=== PATIENT | male | born 1950 | race Hispanic/Latino ===

== ENCOUNTER 2020-11-06 18:23 | Inpatient (IN) | payer MEDICARE ==
[~2020-11-06] VITALS: Ht 172.7 cm; Wt 96.2 kg
[~2020-11-06 18:23] MED LIST: GLIM2TAB30 PO; INSU100V12 SQ; LISI20TA24 PO; METF-444 PO; VALA100031 PO
[2020-11-06 18:49] LABS: BASOPHILS % (AUTO) 0.3 % (0.0-5.0); EOSINOPHILS % (AUTO) 1.4 % (0.0-8.0); HEMATOCRIT 26.3 % (42-54); LYMPHOCYTES % (AUTO) 17.3 % (21.0-51.0); MEAN CORPUSCULAR HEMOGLOBIN 27.2 pg (27.0-33.0); MEAN CORPUSCULAR HGB CONC 32.3 g/dL (32.0-36.0); MONOCYTES % (AUTO) 7.8 % (3.0-13.0); PLATELET COUNT (AUTO) 226 K/uL (130-400); RED BLOOD CELL COUNT(AUTO) 3.13 MIL/uL (4.50-6.20); RED CELL DISTRIBUTION WIDTH 14.7 % (11.0-15.5); WHITE BLOOD COUNT (AUTO) 8.6 K/uL (4.8-10.8)
[2020-11-06 18:54] LABS: APPEARANCE,URINE SL CLOUDY (CLEAR); BILIRUBIN,URINE NEGATIVE (NEGATIVE); COLOR,URINE YELLOW (YELLOW); GLUCOSE, URINE (UA) 100 mg/dL (NEGATIVE); KETONES,URINE NEGATIVE (NEGATIVE); LEUKOCYTE ESTERASE ,URINE NEGATIVE (NEGATIVE); NITRATE,URINE NEGATIVE (NEGATIVE); OCCULT BLOOD,URINE SMALL (NEGATIVE); PROTEIN,URINE >=300 mg/dL (NEGATIVE); UROBILINOGEN,URINE 0.2 mg/dL (0.2-1.0)
[2020-11-06 19:05] LABS: INR 1.06 (0.85-1.15); PROTHROMBIN TIME 11.5 SEC (9.6-11.6)
[2020-11-06 19:07] LABS: PARTIAL THROMBOPLASTIN TIME 28.5 SEC (26.3-35.5)
[2020-11-06 19:19] LABS: B-TYPE NATRIURETIC PEPTIDE 622 pg/mL (0-100)
[2020-11-06 19:21] LABS: BACTERIA,URINE Few /HPF (None Seen); SQUAMOUS EPITHELIAL CELL,UR Few /HPF (0-2)
[2020-11-06] MEDS ORDERED: FUROSEMIDE 40MG VIAL ONE (19:28)
[2020-11-06 19:39] LABS: ALBUMIN 3.6 g/dL (3.5-5.0); BILIRUBIN,TOTAL 0.4 mg/dL (0.2-1.0); CREATININE 5.4 mg/dL (0.5-1.5); POTASSIUM 4.3 mmol/L (3.5-5.1); TOTAL PROTEIN, SERUM 8.5 g/dL (6.0-8.3)
[2020-11-06 19:49] LABS: ABG HCO3 17.6 mmol/L (21.0-28.0); ABG OXYGEN SATURATION 94.5 % (95.0-99.0); ABG PCO2 33 mmHg (35-48)
[2020-11-06 21:11] LABS: CREATINE KINASE, TOTAL 201 U/L (21-232); MYOGLOBIN 282 ng/mL (10-92); TROPONIN I < 0.04 ng/mL (0.00-0.06)
[2020-11-06] MEDS ORDERED: FUROSEMIDE 20MG VIAL IV SCH (21:15)
[2020-11-06 21:32] LABS: HEMOGLOBIN A1C 7.4 % (4.0-6.0)
[2020-11-06] MEDS ORDERED: LACTULOSE 20 GM/30 ML UDCUP PO PRN (23:15)
[2020-11-06] MEDS ORDERED: ONDANSETRON 4MG INJ IV PRN (23:15)
[2020-11-06] MEDS: CEFTRIAXONE 1G VIAL IVP SCH (23:15)
[2020-11-06] MEDS ORDERED: NITROGLYCERIN 0.4 MG SL TAB SL PRN (23:15)
[2020-11-06] MEDS ORDERED: GUAIFENESIN-DM 200/20 MG 10 ML PO PRN (23:15)
[2020-11-06] MEDS ORDERED: MAG/ALUM/SIMETH 30 ML UDCUP PO PRN (23:15)
[2020-11-06] MEDS ORDERED: DOXYCYCLINE 100MG+NS 250ML IV SCH (23:15)
[2020-11-06] MEDS ORDERED: DiphenhydrAMINE HCL 50 MG/ML VIAL IV PRN (23:15)
[2020-11-06] MEDS ORDERED: ACETAMINOPHEN 325 MG TAB PO PRN (23:15)
[2020-11-06] MEDS ORDERED: ALBUTEROL 0.083% 2.5 MG/3 ML INH IH PRN (23:15)
[2020-11-07] MEDS ORDERED: GLUCAGON 1MG KIT 1 MG ML IM PRN (00:30)
[2020-11-07] MEDS ORDERED: DEXTROSE 50%-WATER 50 ML DISP.SYRIN IV PRN (00:30)
[2020-11-07] MEDS ORDERED: POTASSIUM CHLORIDE 20MEQ/100ML 100 ML IV PRN ×2 (00:30)
[2020-11-07] MEDS: INSULIN GLARGINE 100 UNITS/ML 10 ML VIAL SQ SCH ×2 (00:30→21:38)
[2020-11-07] MEDS: DOXYCYCLINE 100MG+NS 250ML 250 ML IV SCH ×2 (02:48→16:01)
[2020-11-07] MEDS ORDERED: SIMV-43 PO (05:04)
[2020-11-07] MEDS ORDERED: TORS20TA4 PO (05:04)
[2020-11-07] MEDS ORDERED: AMLO-257 PO (05:12)
[2020-11-07 05:15] VITALS: BP 157/73
[2020-11-07 06:32] LABS: % IRON SATURATION 6.1 % (30-44)
[2020-11-07] MEDS: INSULIN HUMULIN R 100 UNIT/ML 3ML SQ SCH ×4 (06:36→21:37)
[2020-11-07] MEDS: FAMOTIDINE 20MG VIAL IV SCH (07:40)
[2020-11-07] MEDS: HEPARIN 5,000 UNIT VIAL SQ SCH ×2 (07:40→21:24)
[2020-11-07 07:56] VITALS: BP 134/74
[2020-11-07] MEDS: CEFTRIAXONE 1G VIAL IVP SCH ×2 (11:15→23:18)
[2020-11-07 12:00] VITALS: BP 154/72
[2020-11-07] MEDS ORDERED: EPOETIN ALFA-EPBX (NON-ESRD) 10,000 UNIT/ML VIAL SQ SCH (12:00)
[2020-11-07] MEDS ORDERED: COMPOUND IV MISC 1 EACH IVSOLN MISC PRN (12:15)
[2020-11-07] MEDS ORDERED: 0.9% NACL 250ML 250 ML IV ONE (12:29)
[2020-11-07] MEDS: IRON SUCROSE COMPLEX 100 MG in 0.9%NACL 50ML 50 ML IV SCH (12:31)
[2020-11-07 16:00] VITALS: BP 138/73
[2020-11-07] MEDS: ACETAMINOPHEN 325 MG TAB PO PRN (16:03)
[2020-11-07 20:00] VITALS: BP 171/63
[2020-11-07] MEDS: FUROSEMIDE 20MG VIAL IV SCH (21:25)
[2020-11-07] MEDS: AMLODIPINE 5 MG TAB PO SCH (21:26)
[2020-11-08] VITALS: BP 160/75
[2020-11-08] MEDS: DOXYCYCLINE 100MG+NS 250ML 250 ML IV SCH ×2 (02:51→15:21)
[2020-11-08 04:00] VITALS: BP 141/63
[2020-11-08 05:29] LABS: BASOPHILS % (AUTO) 0.3 % (0.0-5.0); EOSINOPHILS % (AUTO) 0.5 % (0.0-8.0); HEMATOCRIT 24.2 % (42-54); LYMPHOCYTES % (AUTO) 12.3 % (21.0-51.0); MEAN CORPUSCULAR HGB CONC 32.2 g/dL (32.0-36.0); MEAN CORPUSCULAR VOLUME 83.7 fL (79-99); MONOCYTES % (AUTO) 9.9 % (3.0-13.0); NEUTROPHILS % (AUTO) 76.5 % (40.0-77.0); PLATELET COUNT (AUTO) 212 K/uL (130-400); RED BLOOD CELL COUNT(AUTO) 2.89 MIL/uL (4.50-6.20); RED CELL DISTRIBUTION WIDTH 14.7 % (11.0-15.5); WHITE BLOOD COUNT (AUTO) 7.8 K/uL (4.8-10.8)
[2020-11-08 05:51] LABS: ALBUMIN 3.3 g/dL (3.5-5.0); BILIRUBIN,TOTAL 0.3 mg/dL (0.2-1.0); CREATININE 5.5 mg/dL (0.5-1.5); PHOSPHORUS 5.4 mg/dL (2.5-4.9); POTASSIUM 3.9 mmol/L (3.5-5.1); TOTAL PROTEIN, SERUM 7.9 g/dL (6.0-8.3)
[2020-11-08] MEDS: INSULIN HUMULIN R 100 UNIT/ML 3ML SQ SCH ×4 (07:30→21:08)
[2020-11-08 07:49] VITALS: BP 157/78
[2020-11-08] MEDS: IRON SUCROSE COMPLEX 100 MG in 0.9%NACL 50ML 50 ML IV SCH (10:00)
[2020-11-08] MEDS: FAMOTIDINE 20MG VIAL IV SCH (10:00)
[2020-11-08] MEDS: FUROSEMIDE 20MG VIAL IV SCH ×2 (10:00→20:53)
[2020-11-08] MEDS: AMLODIPINE 5 MG TAB PO SCH ×2 (10:00→20:56)
[2020-11-08] MEDS: SIMVASTATIN 20 MG TABLET PO SCH (10:00)
[2020-11-08] MEDS: HEPARIN 5,000 UNIT VIAL SQ SCH ×2 (10:11→21:08)
[2020-11-08 11:40] VITALS: BP 151/81
[2020-11-08] MEDS: CEFTRIAXONE 1G VIAL IVP SCH ×2 (12:14→23:31)
[2020-11-08 16:22] VITALS: BP 154/78
[2020-11-08 20:01] VITALS: BP 146/78
[2020-11-08] MEDS: ACETAMINOPHEN 325 MG TAB PO PRN (20:53)
[2020-11-08] MEDS: INSULIN GLARGINE 100 UNITS/ML 10 ML VIAL SQ SCH (21:09)
[2020-11-09] VITALS (12 sets, daily range): BP systolic 133–162; BP diastolic 58–86
[2020-11-09] MEDS: DOXYCYCLINE 100MG+NS 250ML 250 ML IV SCH ×2 (02:30→15:00)
[2020-11-09 04:59] LABS: BASOPHILS % (AUTO) 0.4 % (0.0-5.0); EOSINOPHILS % (AUTO) 0.9 % (0.0-8.0); HEMATOCRIT 23.7 % (42-54); LYMPHOCYTES % (AUTO) 10.5 % (21.0-51.0); MEAN CORPUSCULAR HEMOGLOBIN 27.9 pg (27.0-33.0); MEAN CORPUSCULAR HGB CONC 33.8 g/dL (32.0-36.0); MEAN CORPUSCULAR VOLUME 82.6 fL (79-99); MONOCYTES % (AUTO) 8.6 % (3.0-13.0); NEUTROPHILS % (AUTO) 79.1 % (40.0-77.0); PLATELET COUNT (AUTO) 202 K/uL (130-400); RED BLOOD CELL COUNT(AUTO) 2.87 MIL/uL (4.50-6.20); RED CELL DISTRIBUTION WIDTH 14.6 % (11.0-15.5); WHITE BLOOD COUNT (AUTO) 8.6 K/uL (4.8-10.8)
[2020-11-09 05:01] LABS: % IRON SATURATION 12.1 % (30-44)
[2020-11-09 05:08] LABS: B-TYPE NATRIURETIC PEPTIDE 1060 pg/mL (0-100)
[2020-11-09 05:09] LABS: ALBUMIN 3.1 g/dL (3.5-5.0); BILIRUBIN,TOTAL 0.4 mg/dL (0.2-1.0); CREATININE 5.4 mg/dL (0.5-1.5); PHOSPHORUS 5.3 mg/dL (2.5-4.9); POTASSIUM 4.5 mmol/L (3.5-5.1); TOTAL PROTEIN, SERUM 7.9 g/dL (6.0-8.3)
[2020-11-09] MEDS: INSULIN HUMULIN R 100 UNIT/ML 3ML SQ SCH ×4 (07:29→19:52)
[2020-11-09] MEDS: HEPARIN 5,000 UNIT VIAL SQ SCH ×3 (09:00→19:53)
[2020-11-09] MEDS: FUROSEMIDE 20MG VIAL IV SCH ×2 (09:12→19:53)
[2020-11-09] MEDS: AMLODIPINE 5 MG TAB PO SCH ×2 (09:13→20:35)
[2020-11-09] MEDS: FAMOTIDINE 20MG VIAL IV SCH (09:13)
[2020-11-09] MEDS: SIMVASTATIN 20 MG TABLET PO SCH (09:13)
[2020-11-09] MEDS: IRON SUCROSE COMPLEX 100 MG in 0.9%NACL 50ML 50 ML IV SCH (10:50)
[2020-11-09] MEDS: CEFTRIAXONE 1G VIAL IVP SCH ×2 (11:04→23:20)
[2020-11-09 11:58] LABS: CHOLESTEROL 125 mg/dL (<200); HDL CHOLESTEROL 49 mg/dL (29-71); LDL DIRECT 59 mg/dL (0-99); TRIGLYCERIDES 82 mg/dL (30-200)
[2020-11-09 12:00] LABS: HEMOGLOBIN A1C 6.6 % (4.0-6.0)
[2020-11-09] MEDS ORDERED: LIDOCAINE HCL 400MG/20ML VIAL ONE (15:28)
[2020-11-09] MEDS ORDERED: HEPARIN 1,000 UNIT VIAL ONE (15:28)
[2020-11-09] MEDS ORDERED: SODIUM BICARB 50MEQ 50ML VIAL 50 ML ONE (15:28)
[2020-11-09] MEDS ORDERED: HEPARIN 5,000 UNIT VIAL IJ PRN (20:15)
[2020-11-09] MEDS ORDERED: NITROGLYCERIN 0.4 MG SL TAB SL PRN (20:15)
[2020-11-09] MEDS ORDERED: LIDOCAINE HCL-MPF 1% 2ML VIAL IJ PRN (20:15)
[2020-11-09] MEDS ORDERED: 0.9%NACL 1000ML IV PRN (20:15)
[2020-11-09] MEDS ORDERED: 0.9%NACL 1000ML 1,000 ML IV PRN (20:15)
[2020-11-09] MEDS: INSULIN GLARGINE 100 UNITS/ML 10 ML VIAL SQ SCH (20:38)
[2020-11-10] MEDS: DOXYCYCLINE 100MG+NS 250ML 250 ML IV SCH ×2 (02:09→15:06)
[2020-11-10 03:57] VITALS: BP 146/77
[2020-11-10 04:43] LABS: BASOPHILS % (AUTO) 0.3 % (0.0-5.0); EOSINOPHILS % (AUTO) 0.7 % (0.0-8.0); HEMATOCRIT 24.7 % (42-54); MEAN CORPUSCULAR HEMOGLOBIN 27.1 pg (27.0-33.0); MEAN CORPUSCULAR HGB CONC 32.8 g/dL (32.0-36.0); MEAN CORPUSCULAR VOLUME 82.6 fL (79-99); MONOCYTES % (AUTO) 7.7 % (3.0-13.0); NEUTROPHILS % (AUTO) 80.9 % (40.0-77.0); PLATELET COUNT (AUTO) 202 K/uL (130-400); RED BLOOD CELL COUNT(AUTO) 2.99 MIL/uL (4.50-6.20); RED CELL DISTRIBUTION WIDTH 14.9 % (11.0-15.5); WHITE BLOOD COUNT (AUTO) 7.2 K/uL (4.8-10.8)
[2020-11-10 04:57] LABS: BILIRUBIN,TOTAL 0.4 mg/dL (0.2-1.0); CREATININE 4.5 mg/dL (0.5-1.5); PHOSPHORUS 4.7 mg/dL (2.5-4.9); POTASSIUM 3.9 mmol/L (3.5-5.1); TOTAL PROTEIN, SERUM 7.6 g/dL (6.0-8.3)
[2020-11-10 05:07] LABS: B-TYPE NATRIURETIC PEPTIDE 1730 pg/mL (0-100)
[2020-11-10] MEDS: INSULIN HUMULIN R 100 UNIT/ML 3ML SQ SCH ×4 (05:24→22:12)
[2020-11-10 08:01] VITALS: BP 146/74
[2020-11-10] MEDS: FAMOTIDINE 20MG VIAL IV SCH (08:12)
[2020-11-10] MEDS: IRON SUCROSE COMPLEX 100 MG in 0.9%NACL 50ML 50 ML IV SCH (08:12)
[2020-11-10] MEDS: SIMVASTATIN 20 MG TABLET PO SCH (08:13)
[2020-11-10] MEDS: AMLODIPINE 5 MG TAB PO SCH ×2 (08:13→21:41)
[2020-11-10] MEDS: FUROSEMIDE 20MG VIAL IV SCH ×2 (08:13→21:40)
[2020-11-10] MEDS: HEPARIN 5,000 UNIT VIAL SQ SCH ×2 (08:14→22:08)
[2020-11-10] MEDS ORDERED: NITROGLYCERIN 0.4 MG SL TAB SL PRN (10:00)
[2020-11-10] MEDS ORDERED: 0.9%NACL 1000ML IV PRN (10:00)
[2020-11-10] MEDS ORDERED: ACETAMINOPHEN 325 MG TAB PO PRN (10:00)
[2020-11-10] MEDS ORDERED: ALBUMIN FOR BP SUPPORT MISC PRN (10:00)
[2020-11-10] MEDS ORDERED: LIDOCAINE HCL-MPF 1% 2ML VIAL IJ PRN (10:00)
[2020-11-10] MEDS ORDERED: 0.9%NACL 1000ML 1,000 ML IV PRN (10:00)
[2020-11-10] MEDS ORDERED: HEPARIN 5,000 UNIT VIAL IJ PRN ×2 (10:00)
[2020-11-10 10:13] LABS: HEPATITIS Bs ANTIGEN SCREEN P Negative (Negative)
[2020-11-10] MEDS: CEFTRIAXONE 1G VIAL IVP SCH ×2 (11:57→23:18)
[2020-11-10 12:24] VITALS: BP 145/78
[2020-11-10 16:10] VITALS: BP 144/69
[2020-11-10 20:31] VITALS: BP 157/67
[2020-11-10] MEDS: INSULIN GLARGINE 100 UNITS/ML 10 ML VIAL SQ SCH (22:11)
[2020-11-11] VITALS (7 sets, daily range): BP systolic 123–163; BP diastolic 51–77
[2020-11-11] MEDS: DOXYCYCLINE 100MG+NS 250ML 250 ML IV SCH ×2 (02:07→14:55)
[2020-11-11 05:05] LABS: BASOPHILS % (AUTO) 0.3 % (0.0-5.0); EOSINOPHILS % (AUTO) 2.8 % (0.0-8.0); HEMATOCRIT 23.9 % (42-54); LYMPHOCYTES % (AUTO) 15.5 % (21.0-51.0); MEAN CORPUSCULAR HEMOGLOBIN 27.3 pg (27.0-33.0); MEAN CORPUSCULAR HGB CONC 33.5 g/dL (32.0-36.0); MEAN CORPUSCULAR VOLUME 81.6 fL (79-99); MONOCYTES % (AUTO) 10.9 % (3.0-13.0); NEUTROPHILS % (AUTO) 70.2 % (40.0-77.0); PLATELET COUNT (AUTO) 198 K/uL (130-400); RED BLOOD CELL COUNT(AUTO) 2.93 MIL/uL (4.50-6.20); RED CELL DISTRIBUTION WIDTH 14.5 % (11.0-15.5); WHITE BLOOD COUNT (AUTO) 6.1 K/uL (4.8-10.8)
[2020-11-11 05:11] LABS: CREATININE 4.1 mg/dL (0.5-1.5); POTASSIUM 3.2 mmol/L (3.5-5.1)
[2020-11-11] MEDS: INSULIN HUMULIN R 100 UNIT/ML 3ML SQ SCH ×4 (07:30→21:53)
[2020-11-11] MEDS: IRON SUCROSE COMPLEX 100 MG in 0.9%NACL 50ML 50 ML IV SCH (08:16)
[2020-11-11] MEDS: FAMOTIDINE 20MG VIAL IV SCH (08:16)
[2020-11-11] MEDS: FUROSEMIDE 20MG VIAL IV SCH ×2 (08:16→20:17)
[2020-11-11] MEDS: SIMVASTATIN 20 MG TABLET PO SCH (08:16)
[2020-11-11] MEDS: HEPARIN 5,000 UNIT VIAL SQ SCH ×2 (09:00→20:26)
[2020-11-11] MEDS ORDERED: CEFAZOLIN SODIUM 100 GM IV SCH (09:15)
[2020-11-11] MEDS ORDERED: EPOETIN ALFA-EPBX (ESRD) 10,000 UNIT/ML VIAL SQ SCH (13:45)
[2020-11-11] MEDS: CEFTRIAXONE 1G VIAL IVP SCH (14:54)
[2020-11-11] MEDS: AMLODIPINE 5 MG TAB PO SCH ×2 (14:54→20:20)
[2020-11-11] MEDS: ACETAMINOPHEN 325 MG TAB PO PRN (18:43)
[2020-11-11] MEDS: INSULIN GLARGINE 100 UNITS/ML 10 ML VIAL SQ SCH (21:53)
[2020-11-12] VITALS (18 sets, daily range): BP systolic 136–152; BP diastolic 57–69
[2020-11-12] MEDS: CEFTRIAXONE 1G VIAL IVP SCH ×3 (00:01→22:26)
[2020-11-12] MEDS: DOXYCYCLINE 100MG+NS 250ML 250 ML IV SCH ×2 (03:36→15:18)
[2020-11-12 05:22] LABS: BASOPHILS % (AUTO) 0.6 % (0.0-5.0); HEMATOCRIT 24.8 % (42-54); LYMPHOCYTES % (AUTO) 18.4 % (21.0-51.0); MEAN CORPUSCULAR HEMOGLOBIN 26.7 pg (27.0-33.0); MEAN CORPUSCULAR HGB CONC 32.3 g/dL (32.0-36.0); MEAN CORPUSCULAR VOLUME 82.7 fL (79-99); MONOCYTES % (AUTO) 13.2 % (3.0-13.0); NEUTROPHILS % (AUTO) 62.4 % (40.0-77.0); PLATELET COUNT (AUTO) 189 K/uL (130-400); RED CELL DISTRIBUTION WIDTH 14.5 % (11.0-15.5)
[2020-11-12 05:36] LABS: CREATININE 3.2 mg/dL (0.5-1.5); PHOSPHORUS 3.6 mg/dL (2.5-4.9); POTASSIUM 3.4 mmol/L (3.5-5.1)
[2020-11-12] MEDS ORDERED: CEFAZOLIN SODIUM 100 GM IV SCH (06:30)
[2020-11-12] MEDS: INSULIN HUMULIN R 100 UNIT/ML 3ML SQ SCH ×4 (06:37→22:24)
[2020-11-12] MEDS: HEPARIN 5,000 UNIT VIAL SQ SCH ×2 (08:23→22:23)
[2020-11-12] MEDS: AMLODIPINE 5 MG TAB PO SCH ×2 (08:31→22:04)
[2020-11-12] MEDS: FAMOTIDINE 20MG VIAL IV SCH (08:31)
[2020-11-12] MEDS: FUROSEMIDE 20MG VIAL IV SCH ×2 (08:31→22:04)
[2020-11-12] MEDS: IRON SUCROSE COMPLEX 100 MG in 0.9%NACL 50ML 50 ML IV SCH (08:31)
[2020-11-12] MEDS: SIMVASTATIN 20 MG TABLET PO SCH (08:32)
[2020-11-12] MEDS: ACETAMINOPHEN 325 MG TAB PO PRN (08:33)
[2020-11-12] MEDS: KCL 20 MEQ ERTAB PO PRN ×2 (08:49→12:51)
[2020-11-12] MEDS ORDERED: LIDOCAINE HCL 1% 20 ML VIAL ONE (09:10)
[2020-11-12] MEDS ORDERED: ROPIVACAINE 0.5% 5MG/ML 30ML IJ ONE (09:41)
[2020-11-12] MEDS ORDERED: LIDOCAINE 1%-EPI 1:100,000 20 ML VIAL IJ ONE (09:41)
[2020-11-12] MEDS ORDERED: LIDOCAINE 2%-EPI 1:200,000 20 ML VIAL IJ ONE (09:43)
[2020-11-12] MEDS ORDERED: MIDAZOLAM HCL 1 MG/ML 2ML VIAL ONE (09:44)
[2020-11-12] MEDS ORDERED: PROPOFOL 10 MG/ML 20ML VIAL IV ONE ×2 (09:44→10:38)
[2020-11-12] MEDS ORDERED: CEFAZOLIN SODIUM 1 GM VIAL IVP ONE (10:05)
[2020-11-12] MEDS ORDERED: CEFAZOLIN SODIUM 1 GM VIAL ONE (21:56)
[2020-11-12] MEDS: INSULIN GLARGINE 100 UNITS/ML 10 ML VIAL SQ SCH (22:24)
[2020-11-13] VITALS (7 sets, daily range): BP systolic 140–157; BP diastolic 56–70
[2020-11-13] MEDS: DOXYCYCLINE 100MG+NS 250ML 250 ML IV SCH ×2 (03:00→15:39)
[2020-11-13 04:40] LABS: BASOPHILS % (AUTO) 0.3 % (0.0-5.0); EOSINOPHILS % (AUTO) 3.4 % (0.0-8.0); HEMATOCRIT 24.7 % (42-54); LYMPHOCYTES % (AUTO) 14.7 % (21.0-51.0); MEAN CORPUSCULAR HEMOGLOBIN 27.1 pg (27.0-33.0); MEAN CORPUSCULAR VOLUME 84.6 fL (79-99); MONOCYTES % (AUTO) 12.1 % (3.0-13.0); PLATELET COUNT (AUTO) 178 K/uL (130-400); RED BLOOD CELL COUNT(AUTO) 2.92 MIL/uL (4.50-6.20); RED CELL DISTRIBUTION WIDTH 14.9 % (11.0-15.5); WHITE BLOOD COUNT (AUTO) 6.3 K/uL (4.8-10.8)
[2020-11-13 04:50] LABS: ALBUMIN 2.5 g/dL (3.5-5.0); BILIRUBIN,TOTAL 0.2 mg/dL (0.2-1.0); PHOSPHORUS 3.4 mg/dL (2.5-4.9); POTASSIUM 3.5 mmol/L (3.5-5.1); TOTAL PROTEIN, SERUM 6.4 g/dL (6.0-8.3)
[2020-11-13] MEDS: INSULIN HUMULIN R 100 UNIT/ML 3ML SQ SCH ×4 (05:34→21:02)
[2020-11-13] MEDS: POTASSIUM CHLORIDE 10% ELIXIR 20 MEQ/15 ML UDCUP PO PRN ×2 (05:36→12:32)
[2020-11-13] MEDS: HEPARIN 5,000 UNIT VIAL SQ SCH ×2 (09:00→21:15)
[2020-11-13] MEDS: SIMVASTATIN 20 MG TABLET PO SCH (12:32)
[2020-11-13] MEDS: FUROSEMIDE 20MG VIAL IV SCH ×2 (12:32→21:09)
[2020-11-13] MEDS: AMLODIPINE 5 MG TAB PO SCH ×2 (12:33→21:10)
[2020-11-13] MEDS: CEFTRIAXONE 1G VIAL IVP SCH (12:33)
[2020-11-13] MEDS: FAMOTIDINE 20MG VIAL IV SCH (12:33)
[2020-11-13] MEDS: IRON SUCROSE COMPLEX 100 MG in 0.9%NACL 50ML 50 ML IV SCH (12:46)
[2020-11-13] MEDS ORDERED: EPOETIN ALFA-EPBX (ESRD) 10,000 UNIT/ML VIAL SQ SCH (18:45)
[2020-11-13] MEDS: INSULIN GLARGINE 100 UNITS/ML 10 ML VIAL SQ SCH (21:16)
[2020-11-14 03:36] VITALS: BP 147/60
[2020-11-14 04:35] LABS: BASOPHILS % (AUTO) 0.4 % (0.0-5.0); EOSINOPHILS % (AUTO) 4.6 % (0.0-8.0); HEMATOCRIT 26.1 % (42-54); LYMPHOCYTES % (AUTO) 20.8 % (21.0-51.0); MEAN CORPUSCULAR HEMOGLOBIN 27.2 pg (27.0-33.0); MEAN CORPUSCULAR HGB CONC 31.8 g/dL (32.0-36.0); MEAN CORPUSCULAR VOLUME 85.6 fL (79-99); MONOCYTES % (AUTO) 11.2 % (3.0-13.0); NEUTROPHILS % (AUTO) 62.6 % (40.0-77.0); PLATELET COUNT (AUTO) 189 K/uL (130-400); RED BLOOD CELL COUNT(AUTO) 3.05 MIL/uL (4.50-6.20); RED CELL DISTRIBUTION WIDTH 15.4 % (11.0-15.5); WHITE BLOOD COUNT (AUTO) 5.4 K/uL (4.8-10.8)
[2020-11-14] MEDS: DOXYCYCLINE 100MG+NS 250ML 250 ML IV SCH ×3 (04:54→21:00)
[2020-11-14 05:11] LABS: POTASSIUM 3.5 mmol/L (3.5-5.1)
[2020-11-14] MEDS: INSULIN HUMULIN R 100 UNIT/ML 3ML SQ SCH ×4 (06:55→21:00)
[2020-11-14 07:00] VITALS: BP 156/66
[2020-11-14] MEDS: AMLODIPINE 5 MG TAB PO SCH ×2 (08:59→21:00)
[2020-11-14] MEDS: IRON SUCROSE COMPLEX 100 MG in 0.9%NACL 50ML 50 ML IV SCH (08:59)
[2020-11-14] MEDS: FUROSEMIDE 20MG VIAL IV SCH ×2 (08:59→21:00)
[2020-11-14] MEDS: SIMVASTATIN 20 MG TABLET PO SCH (08:59)
[2020-11-14] MEDS ORDERED: FAMOTIDINE 20MG TAB PO SCH (09:00)
[2020-11-14] MEDS: HEPARIN 5,000 UNIT VIAL SQ SCH ×2 (09:05→21:00)
[2020-11-14 11:00] VITALS: BP 150/61
[2020-11-14 16:00] VITALS: BP 147/57
[2020-11-14 19:31] VITALS: BP 149/67
[2020-11-14] MEDS: INSULIN GLARGINE 100 UNITS/ML 10 ML VIAL SQ SCH (21:00)
[2020-11-14 23:38] VITALS: BP 134/58
[2020-11-15 04:24] VITALS: BP 128/47
[2020-11-15 05:23] LABS: HEMATOCRIT 23.6 % (42-54); MEAN CORPUSCULAR HEMOGLOBIN 27.8 pg (27.0-33.0); MEAN CORPUSCULAR HGB CONC 32.6 g/dL (32.0-36.0); MEAN CORPUSCULAR VOLUME 85.2 fL (79-99); RED BLOOD CELL COUNT(AUTO) 2.77 MIL/uL (4.50-6.20); RED CELL DISTRIBUTION WIDTH 15.3 % (11.0-15.5); WHITE BLOOD COUNT (AUTO) 5.3 K/uL (4.8-10.8)
[2020-11-15 06:21] LABS: CREATININE 3.5 mg/dL (0.5-1.5); POTASSIUM 3.4 mmol/L (3.5-5.1)
[2020-11-15 06:49] VITALS: BP 124/52
[2020-11-15] MEDS: INSULIN HUMULIN R 100 UNIT/ML 3ML SQ SCH ×2 (06:58→11:30)
[2020-11-15] MEDS: DOXYCYCLINE 100MG+NS 250ML 250 ML IV SCH (08:49)
[2020-11-15] MEDS: IRON SUCROSE COMPLEX 100 MG in 0.9%NACL 50ML 50 ML IV SCH (08:49)
[2020-11-15] MEDS: FUROSEMIDE 20MG VIAL IV SCH (08:50)
[2020-11-15] MEDS: SIMVASTATIN 20 MG TABLET PO SCH (08:50)
[2020-11-15] MEDS: AMLODIPINE 5 MG TAB PO SCH (08:51)
[2020-11-15] MEDS: KCL 20 MEQ ERTAB PO PRN ×2 (08:51→11:59)
[2020-11-15] MEDS: HEPARIN 5,000 UNIT VIAL SQ SCH (08:59)
[2020-11-15 11:47] VITALS: BP 169/77
[2020-11-15] MEDS ORDERED: CEFD300C3 PO (12:52)
== END 2020-11-15 14:46 | disposition home or self-care (01) | DRG 673 ==
LOC: EDH 18:23 → EDHIP 23:14 → 4AH 11-07 01:13
PROVIDERS: ADMIT Family Medicine; ATTEND Family Medicine
PROC: 0JH63XZ Insertion of Tunneled Vascular Access Device into Chest Subcutaneous Tissue and Fascia, Percutaneous Approach (ICD-10-PCS; 2020-11-09)
PROC: 02H633Z Insertion of Infusion Device into Right Atrium, Percutaneous Approach (ICD-10-PCS; 2020-11-09)
PROC: B5181ZA Fluoroscopy of Superior Vena Cava using Low Osmolar Contrast, Guidance (ICD-10-PCS; 2020-11-09)
PROC: B548ZZA Ultrasonography of Superior Vena Cava, Guidance (ICD-10-PCS; 2020-11-09)
PROC: 5A1D70Z Performance of Urinary Filtration, Intermittent, Less than 6 Hours Per Day (ICD-10-PCS; 2020-11-09)
PROC: 5A1D70Z Performance of Urinary Filtration, Intermittent, Less than 6 Hours Per Day (ICD-10-PCS; 2020-11-10)
PROC: 5A1D70Z Performance of Urinary Filtration, Intermittent, Less than 6 Hours Per Day (ICD-10-PCS; 2020-11-11)
PROC: 03180ZD Bypass Left Brachial Artery to Upper Arm Vein, Open Approach (ICD-10-PCS; principal; 2020-11-12 10:12)
PROC: 5A1D70Z Performance of Urinary Filtration, Intermittent, Less than 6 Hours Per Day (ICD-10-PCS; 2020-11-13)
PROC: 5A1D70Z Performance of Urinary Filtration, Intermittent, Less than 6 Hours Per Day (ICD-10-PCS; 2020-11-15)
DX: N17.9 Acute kidney failure, unspecified (principal); J15.9 Unspecified bacterial pneumonia; J96.01 Acute respiratory failure with hypoxia; I12.0 Hypertensive chronic kidney disease with stage 5 chronic kidney disease or end stage renal disease; E87.2 Acidosis; N18.6 End stage renal disease; Z20.822 Contact with and (suspected) exposure to COVID-19; E78.5 Hyperlipidemia, unspecified; E11.22 Type 2 diabetes mellitus with diabetic chronic kidney disease; E87.70 Fluid overload, unspecified; R80.9 Proteinuria, unspecified; D63.8 Anemia in other chronic diseases classified elsewhere; E11.649 Type 2 diabetes mellitus with hypoglycemia without coma; Z99.2 Dependence on renal dialysis; Z83.3 Family history of diabetes mellitus; Z90.49 Acquired absence of other specified parts of digestive tract
CPT/HCPCS: 36415; 36558; 36600; 71045; 76770; 77001; 80048; 80053; 80061; 81001; 82550; 82728; 82803; 82948; 83036; 83540; 83550; 83605; 83874; 83880; 84100; 84145; 84484; 85025; 85027; 85610; 85730; 86140; 86701; 86704; 86706; 86850; 86900; 86901; 87040; 87340; 87390; 87426; 87520; 90935; 93005; 93931; 93971; A4606; C1750; G0378; J0690; J0696; J1644; J1756; J1815; J1940; J2250; J2704; J2795; J3490; J7040; J7050; J7070; U0003